=== PATIENT | male | born 1955 | race Caucasian/White ===

== ENCOUNTER 2016-08-18 16:54 | Emergency (ER) | payer MEDICARE, MEDICAID ==
--- NOTE | 2016-08-18 19:04 | CT ---
ABD/PELVIS W/O CON COMPARISON: MRI abdomen, 12/14/2015. CT abdomen pelvis without contrast, 12/07/2015 HISTORY: 61-year-old male. Ground-level fall getting and at home. Alcohol use. Right hip and pelvis pain. Past history of mass in the upper pole left kidney and right hip replacement. Technique: Using a [employer] [address] scanner, images were obtained from the diaphragm to the floor the pelvis. No intravenous contrast. An automated dose reduction technique was used to minimize patient radiation dose. Dose: CTDIvol (mGy): 14.00 DLP(mGycm): 764.70 FINDINGS: Lung bases: Normal Inferior mediastinum and heart: Normal Liver: Normal Gallbladder: Tiny gallstones. Bile ducts: Normal. Pancreas: Normal Spleen: Normal Adrenal glands: Left adrenalectomy. Kidneys: Left nephrectomy. Ureters: Normal right ureter. Urinary bladder: Normal. Prostate gland and seminal vesicles: Normal Blood vessels: Atherosclerosis of the aorta and the common iliac arteries. Lymph nodes: Normal Stomach: Normal Duodenum: Normal Small intestine: Normal Appendix: Appendectomy. Colon: Normal Abdominal wall and supporting musculature: Normal Bones: Right hip replacement without evidence of fracture or displacement. Degenerative changes in the spine. IMPRESSION: 1. Right hip replacement without evidence of fracture or dislocation. 2. Incidentally noted gallstones, left nephrectomy/adrenalectomy, appendectomy, and atherosclerosis. Report was sent to the emergency department electronic medical record system, 08/18/2016 at 19:04
[2016-08-18] MEDS ORDERED: OXYCODONE HCL 5 MG TABLET ONE (20:28)
== END 2016-08-18 20:33 | disposition home or self-care (01) ==
LOC: ED 16:54
DX: S76.011A Strain of muscle, fascia and tendon of right hip, initial encounter (principal); W18.30XA Fall on same level, unspecified, initial encounter; Y92.009 Unspecified place in unspecified non-institutional (private) residence as the place of occurrence of the external cause
CPT/HCPCS: 74176; 99283 ×2; A9270